=== PATIENT | male | born 2000 | race Caucasian/White ===

== ENCOUNTER 2020-10-28 11:33 | Emergency (ER) | payer OTHER ==
[~2020-10-28] VITALS: Ht 175.3 cm; Wt 81.6 kg
[2020-10-28 11:46] VITALS: BP 125/87
--- NOTE | 2020-10-28 11:50 | NUR ---
PT C/O DRY COUGH AND SOB FOR THE PAST FEW DAYS. DENIES FEVER, CHEST PAIN, LOSS SENSE OF TASTE OR SMELL, CHILLS, BODY ACHES, OR N/V/D. REPORTS MOTHER HAS BEEN DX WITH COVID-19 3 DAYS AGO, AND STEP FATHER HAS BEEN HOSPITALIZED HERE FOR COVID-19. PMH: DENIES
--- NOTE | 2020-10-28 12:30 | NUR ---
COVID SWAB COLLECTED AND SENT TO THE LAB.
[2020-10-28 12:40] VITALS: BP 125/87
--- NOTE | 2020-10-28 12:40 | NUR ---
Patient discharged with v/s stable. Written and verbal after care instructions given and explained. Patient verbalized understanding. Ambulatory with steady gait. All questions addressed prior to discharge. Advised to follow up with PMD.
--- NOTE | 2020-10-29 23:21 | NUR ---
Covid results received from lab. Results = postive. Hard copy requested from lab and placed in infection controls mailbox.
== END 2020-10-28 12:40 | disposition home or self-care (01) ==
LOC: MED 11:33
DX: U07.1 COVID-19 (principal); R05 Cough
CPT/HCPCS: 99283; U0003